=== PATIENT | female | born 1965 | race Caucasian/White ===

== ENCOUNTER 2017-03-06 19:23 | Emergency (ER) | payer OTHER ==
--- NOTE | ~2017-03-06 | CR141 ---
[facility]. [facility] A Service of [facility] & [facility] RADIOLOGY TEXT RESULTS PATIENT: BIANCA SHARMA LOCATION: SED : 61 UNIT #: [id number] AGE: [address]: Carlyn Reyes APRN SEX: F ORDER DR: [id number] [address] [address] [id number] E MR#: [id number] Acc #: [id number] NAME: BIANCA SHARMA : 1965 SEX: F STUDY DATE/TIME: 03/06/2017 19:32 UNIT: SED ROOM: STUDY DESCRIPTION: CR Hand Min 3 Views Lt Attending Physician: Carlyn Reyes A.P.R.N. Ordering Physician: Carlyn Reyes A.P.R.N. MEDICAL IMAGING REPORT This report is preliminary unless electronic signature is present. EXAM Left hand 3 views HISTORY Dog bite this evening, immediately prior to admission with pain, swelling, bruising and puncture. FINDINGS 3 views of the left hand are submitted. Bony elements appear intact. No radiopaque foreign bodies are identified. There is soft tissue swelling around the wrist. CONCLUSION Negative soft tissue swelling present. No fractures or foreign bodies. Dictated by... Mathew Nguyen M.D. THIS IS AN ELECTRONICALLY VERIFIED REPORT Mathew Nguyen M.D. at 03/10/2017 7:21 AM FAMILIA/hadley TD: 03/06/2017 23:11 JOB #: [id number] MEDICAL IMAGING REPORT Page 1 of 1
--- NOTE | ~2017-03-06 | CR281 ---
[facility]. [facility] A Service of [facility] / [facility] RADIOLOGY TEXT RESULTS PATIENT: BIANCA SHARMA LOCATION: SED : 61 UNIT #: [id number] AGE: [address]: Carlyn Reyes APRN SEX: F ORDER DR: [id number] [address] [address] [id number] E MR#: [id number] Acc #: [id number] NAME: BIANCA SHARMA : 1965 SEX: F STUDY DATE/TIME: 03/06/2017 19:32 UNIT: SED ROOM: STUDY DESCRIPTION: CR Wrist Min 3 View Lt Attending Physician: Carlyn Reyes A.P.R.N. Ordering Physician: Carlyn Reyes A.P.R.N. MEDICAL IMAGING REPORT This report is preliminary unless electronic signature is present. EXAM Left wrist 3 views HISTORY Dog bite. FINDINGS 3 views of the wrist are submitted. There is some marked soft tissue swelling over the wrist and distal forearm, over the dorsal radial aspect. Air is seen in the soft tissues. No radiopaque foreign bodies are seen and no fractures are present. CONCLUSION Soft tissue swelling with air in the soft tissues. No fractures or radiopaque foreign bodies. Dictated by... Mathew Nguyen M.D. THIS IS AN ELECTRONICALLY VERIFIED REPORT Mathew Nguyen M.D. at 03/10/2017 7:21 AM FAMILIA/hadley TD: 03/06/2017 23:12 JOB #: [id number] MEDICAL IMAGING REPORT Page 1 of 1
[~2017-03-06 19:23] MED LIST: BENADRYL PO; BUSPAR PO; FENOFIBRATE160 MG PO; SIMVASTATIN40 MG PO; VITAMIN D-32000 UNI1 PO; ZOLOFT PO
[2017-03-06] MEDS ORDERED: LORCET 5-325 M1 EACH PO (21:05)
[2017-03-06] MEDS ORDERED: CLEOCIN HCL300 M1 PO (21:06)
[2017-03-06] MEDS ORDERED: BACTRIM DS TAB1 EACH PO (21:06)
== END 2017-03-06 21:17 | disposition home or self-care (01) ==
LOC: SED 19:23
DX: S61.502A Unspecified open wound of left wrist, initial encounter (principal); S61.402A Unspecified open wound of left hand, initial encounter; F41.9 Anxiety disorder, unspecified; I10 Essential (primary) hypertension; Z23 Encounter for immunization; Z79.899 Other long term (current) drug therapy; W54.0XXA Bitten by dog, initial encounter; Y92.009 Unspecified place in unspecified non-institutional (private) residence as the place of occurrence of the external cause
CPT/HCPCS: 73110; 73130; 90471; 90715; 96372; 99283; J2270

== ENCOUNTER 2017-03-08 13:57 | Emergency (ER) | payer OTHER ==
[~2017-03-08 13:57] MED LIST changes: +BACTRIM DS TAB1 EACH PO; +CLEOCIN HCL300 M1 PO; +LORCET 5-325 M1 EACH PO
[2017-03-08 14:10] LABS: BASOPHIL% 0.4 % (0-2.5); DIFF IND NO; EOSINOPHIL% 0.4 % (0.0-7.0); HEMATOCRIT 34.5 % (35.0-45.0); HEMOGLOBIN 11.8 gm/dL (12.0-16.0); LYMPHOCYTE# 1.3 X10e3 (1.0-3.5); LYMPHOCYTE% 22.3 % (17.0-45.0); MEAN CELL VOLUME 84.6 FL (83-96); MEAN CORPUSCULAR HEMOGLOBIN 28.9 PG (28-34); MEAN CORPUSCULAR HGB CONC 34.1 g/dL (30-36); MEAN PLATELET VOLUME 7.5 FL (6.5-11.5); MONOCYTE# 0.5 X10e3 (0-1.0); MONOCYTE% 7.8 % (3.0-12.0); NEUTROPHIL% 69.1 % (40-75); PLATELET COUNT 254 X10e3 (140-420); RED BLOOD COUNT 4.08 X10e (3.90-5.30); RED CELL DISTRIBUTION WIDTH 14.1 % (11.0-15.5); WHITE BLOOD COUNT 5.8 X10e3 (4.0-10.5)
[2017-03-08 14:27] LABS: ALBUMIN SERUM 4.5 g/dL (3.5-5.0); BILIRUBIN,TOTAL 0.5 mg/dL (0.2-2.0); CALCIUM SERUM 9.4 mg/dL (8.4-10.2); GLOM FILT RATE Estimated 64.3 mL/min (>60); POTASSIUM 3.3 mmol/L (3.5-5.1); PROTEIN TOTAL SERUM 7.7 g/dL (6.0-8.3)
== END 2017-03-08 15:39 ==
LOC: SED 13:57
PROVIDERS: Nurse Practitioner
DX: L03.113 Cellulitis of right upper limb (principal); S61.451D Open bite of right hand, subsequent encounter; S61.551D Open bite of right wrist, subsequent encounter; F41.9 Anxiety disorder, unspecified; E78.5 Hyperlipidemia, unspecified; Z90.710 Acquired absence of both cervix and uterus; Z98.890 Other specified postprocedural states; Z88.5 Allergy status to narcotic agent; Z88.1 Allergy status to other antibiotic agents; Z88.8 Allergy status to other drugs, medicaments and biological substances; Z79.899 Other long term (current) drug therapy; W54.0XXD Bitten by dog, subsequent encounter
CPT/HCPCS: 36415; 80053; 85025; 96374; 99283; J0690